=== PATIENT | female | born 2000 | race African-American/Black ===

== ENCOUNTER 2021-01-21 17:07 | Emergency (ER) | payer OTHER ==
[~2021-01-21] VITALS: Ht 167.6 cm; Wt 50.8 kg
[2021-01-21 20:00] VITALS: BP 110/69
== END 2021-01-21 20:47 | disposition home or self-care (01) ==
LOC: ER 17:07
DX: S00.512A Abrasion of oral cavity, initial encounter (principal); S09.8XXA Other specified injuries of head, initial encounter; R68.84 Jaw pain; Y04.8XXA Assault by other bodily force, initial encounter; Y93.89 Activity, other specified; Y92.89 Other specified places as the place of occurrence of the external cause; Y99.8 Other external cause status
CPT/HCPCS: 70486

== ENCOUNTER 2022-04-24 22:11 | Emergency (ER) | payer OTHER ==
[~2022-04-24] VITALS: Ht 170.2 cm; Wt 52.4 kg
[2022-04-24 23:04] VITALS: BP 104/65
[2022-04-25] MEDS ORDERED: AMOX-277 PO (00:52)
[2022-04-25] MEDS: TETANUS-DIPTH-ACEL PERTUSSIS 0.5ML SYR Tdap IM ONE (01:24)
== END 2022-04-25 01:34 | disposition home or self-care (01) ==
LOC: ER 22:11
DX: S61.451A Open bite of right hand, initial encounter (principal); S60.511A Abrasion of right hand, initial encounter; W54.0XXA Bitten by dog, initial encounter; Y93.89 Activity, other specified; Y92.89 Other specified places as the place of occurrence of the external cause; Y99.8 Other external cause status
CPT/HCPCS: 90471; 90715

== ENCOUNTER 2022-09-04 16:46 | Emergency (ER) | payer OTHER ==
[~2022-09-04] VITALS: Ht 167.6 cm; Wt 50.6 kg
[~2022-09-04 16:46] MED LIST: AMOX875T4 PO
[2022-09-04 17:03] VITALS: BP 113/68
[2022-09-04] MEDS ORDERED: KETOROLAC TROMETH 30 MG/ML 1ML VIAL IM ONE (20:00)
== END 2022-09-04 20:16 | disposition home or self-care (01) ==
LOC: ER 16:46
DX: M54.89 Other dorsalgia (principal)
CPT/HCPCS: 96372; 99283; J1885

== ENCOUNTER 2022-10-01 00:05 | Emergency (ER) | payer OTHER ==
[~2022-10-01] VITALS: Ht 167.6 cm; Wt 51.0 kg
[2022-10-01 03:53] VITALS: BP 107/69
== END 2022-10-01 05:02 | disposition left against medical advice (07) ==
LOC: ER 00:06
DX: H92.03 Otalgia, bilateral (principal); Z53.21 Procedure and treatment not carried out due to patient leaving prior to being seen by health care provider